=== PATIENT | female | born 1955 ===

== ENCOUNTER → 2018-02-06 14:11 | Outpatient (CLI) | payer OTHER, SELFPAY ==
--- NOTE | 2018-02-06 | DI.RAD.S_ITS ---
This blank DEXA report has been sent in error by the PACS system. The correct and complete report will be forthcoming in 1-2 days. Thank you for your patience and understanding. Dictated by: Jenna Allen MD, PhD on 02/06/2018 at 15:47 Approved by: Jenna Allen MD, PhD on 02/06/2018 at 15:47
== END ==
PROVIDERS: Family Provider Family Medicine; PCP Family Medicine; Visit Provider Family Medicine
DX: M81.0 Age-related osteoporosis without current pathological fracture (principal); Z78.0 Asymptomatic menopausal state
CPT/HCPCS: 77080

== ENCOUNTER → 2019-07-17 09:38 | Outpatient (CLI) | payer OTHER, SELFPAY ==
[2019-07-19 12:59] LABS: Ionized Calcium 5.6 mg/dL (4.8-5.6)
== END ==
PROVIDERS: Family Provider Family Medicine; PCP Family Medicine; Referring Provider Family Medicine; Visit Provider Family Medicine
DX: Z00.00 Encounter for general adult medical examination without abnormal findings (principal); M81.0 Age-related osteoporosis without current pathological fracture
CPT/HCPCS: 36415; 82330

== ENCOUNTER → 2020-02-23 08:50 | Outpatient (CLI) | payer OTHER, SELFPAY ==
[2020-02-26 06:50] LABS: COVID19 Sendout Not Detected (Not Detect)
== END ==
PROVIDERS: Family Provider Family Medicine; PCP Family Medicine; Visit Provider Nurse Practitioner
DX: Z11.59 Encounter for screening for other viral diseases (principal)
CPT/HCPCS: 87635

== ENCOUNTER 2020-02-26 07:41 | Day surgery (SDC) | payer OTHER, SELFPAY ==
[2020-02-24 11:51] VITALS: BMI 25.2
[2020-02-26] VITALS (7 sets, daily range): BP systolic 93–102; BP diastolic 53–69; PULSE 64–84; RESP 12–16; TEMP 36.2–36.3; O2SAT 93–98; BMI 25.2
--- NOTE | 2020-02-26 | PATH_ITS ---
[facility] Accession Number: [id number] . 01 Material submitted: . axilla - LEFT AXILLA FATTY MASS . 01 Clinical history: . SDC . 01 Diagnosis: Left Axilla, Excision: Mature adipose tissue, consistent with lipoma. MRV 02/28/2020 0942 Local . 01 Electronically signed: . Daniel Falk MD, Dermatopathologist NPI- [id number] . 01 Gross description: . Received in formalin, labeled left axilla fatty mass, and consists of a 2.0 x 1.6 x 1.0 cm hoang-yellow fragment of soft tissue which is inked blue and sectioned to reveal hoang-yellow lobulated cut surfaces. The specimen is serially sectioned and entirely submitted in cassettes A1-A2. ([id number]) /V 02/27/2020 1250 Local . 01 Pathologist provided ICD-10: D17.9 . 01 CPT . 933880 Performed at: [address] [facility] [address], [place], [place] [id number] MD Ladarius Beckett MD Phone: [phone]
[2020-02-26] MEDS: SCOPOLAMINE 1 PATCH TOP (08:02)
[2020-02-26] MEDS: ACETAMINOPHEN 325 MG TABLET 975 MG PO (08:02)
[2020-02-26] MEDS: LACTATED RINGERS 1,000 ML 42 ML IV (08:02)
--- NOTE | 2020-02-26 08:28 | SUR.OPER ---
Supine on padded OR bed, head on pillow, arms secured on padded arm boards at <90 degrees abduction, legs uncrossed, safety belt at thigh, tape over blanket over lower legs.
[2020-02-26] MEDS: CEFAZOLIN 2 GM/100 ML FROZ.PIGGY IV (08:40)
--- NOTE | 2020-02-26 08:44 | PM.PREOP ---
Pre-operative Note COVID-19 COVID-19 status: Negative Result date/Date tested (Pos, Neg/Pending): 02/23/20 Interval Note History & Physical reviewed/Exam performed by Physician: Yes Changes to H&P: No
[2020-02-26] MEDS: BUPIVACAINE 0.25% W/ EPI 30 ML VIAL INJ (09:13)
--- NOTE | 2020-02-26 09:19 | PM.OP.1 ---
Operative Date/Time/Diagnoses Date of procedure: 02/26/20 Time of procedure: 09:19 Pre-op diagnosis: left axillary mass Post-op diagnosis: same Procedure & Clinicians Procedure: Excision of left axillary mass 2cm x 2cm Same procedure as scheduled: Yes Indications: Left axillary mass causing pain and paresthesias with unknown malignant potential Click Yes if Unassisted: Yes Anesthesia Type: General Operative Notes Findings: 2cm fatty mass, adherent to surrounding structures Closure Type: primary Specimen(s): other (left axillary fatty mass) Estimated Blood Loss (mL): 1 Procedure in detail: 2cm vertical incision over the mass, dissected free attachments to skin and surrounding structures; closed with vicryl and monocryl and dermabond The patient was brought into the OR and placed supine on the OR table. Sequential compression devices were placed on both legs and turned on. General anesthesia was induced and the patient was intubated by the anesthesiologist. Appropriate perioperative antibiotics were given. The left axilla was prepped and draped in sterile fashion. Surgical time out was performed. Local anesthetic was infiltrated into the skin overlying the palpable mass in the left axilla. A 3 cm vertical skin incision was made in the skin overlying the mass using 15 blade. Dissection was carried down through the skin and subcutaneous tissue until the mass was identified. A 2 cm x 2 cm fatty mass was identified and dissected out from the surrounding structures. It was not encapsulated, but was adherent to the skin and surrounding structures. Once it was dissected free, it was passed off the table for pathology. It did appear like traumatized fat. Hemostasis was achieved using cautery. The skin was then closed with interrupted 3 0 Vicryl sutures, and running 4 Monocryl suture. The skin edges were then sealed with Dermabond. The patient tolerated the procedure well. The patient was then awakened from anesthesia and extubated. Needle sponge and instrument counts were correct x 2. The patient was transferred to the PACU in stable condition. Complications: none Post-operative Condition: stable Disposition: PACU
== END 2020-02-26 10:10 | disposition home or self-care (01) ==
PROVIDERS: Family Provider Family Medicine; PCP Family Medicine; Referring Provider Family Medicine; Visit Provider Surgery
PROC: (CPT 21931; principal; 2020-02-26 08:45)
DX: D17.1 Benign lipomatous neoplasm of skin and subcutaneous tissue of trunk (principal)
CPT/HCPCS: 21931; J0690; J1100; J1885; J2250; J2405; J2704

== ENCOUNTER → 2023-03-10 07:51 | Day surgery (SDC) | payer MEDICARE, OTHER, SELFPAY ==
[2023-03-10 08:11] VITALS: BMI 23.8
[2023-03-10 08:16] VITALS: BP 119/73; PULSE 77; RESP 16; TEMP 36.1; O2SAT 96
[2023-03-10] MEDS: LACTATED RINGERS 1,000 ML 150 ML IV (08:22)
--- NOTE | 2023-03-10 08:48 | PM.HP.1 ---
History of Present Illness History of Present Illness Date Patient Seen: 03/10/23 Time Patient Seen: 08:48 Chief complaint: Colonoscopy Narrative: Colon cancer screening, this is her 2nd colonoscopy. No family history and no symptoms at this time [facility] Medical History Arm paresthesia, left Neoplasm of uncertain behavior Osteoporosis Surgical History History of partial hysterectomy Hx of cholecystectomy Social History marital status: household members: spouse and children occupational status: employed Smoking Status: Never smoker alcohol intake: never substance use type: does not use Meds Home Medications and Allergies Home Medications Medication Instructions Recorded Confirmed Type alendronate 70 mg tablet 70 mg PO QWEEK 02/04/20 03/10/23 History calcium carbonate 500 mg calcium 500 mg PO DAILY 02/04/20 03/10/23 History (1,250 mg) tablet (Calcium 500) cholecalciferol (vitamin D3) 10 10 mcg PO DAILY 02/04/20 03/10/23 History mcg (400 unit) capsule Allergies Allergy/AdvReac Type Severity Reaction Status Date / Time latex Allergy Mild Rash Verified 03/10/23 08:04 Exam Vital Signs (past 8 hours): - 03/10/23 08:16 Temperature 97.0 F L Pulse Rate 77 Respiratory Rate 16 Blood Pressure 119/73 Pulse Oximetry 96 Oxygen Delivery Method Room Air Oxygen Delivery Method Room Air Const General: cooperative and healthy appearing [facility] Head: normal to inspection, normocephalic and atraumatic Face and sinus: normal facial exam Eyes General: appearance normal, both eyes and all related structures Neck Neck: trachea midline Resp Effort & Inspection: normal respiratory effort and able to speak in complete sentences Cardio Rate: regular rate Rhythm: regular rhythm GI Inspection: normal to inspection Palpation: soft Skin General: turgor normal Neuro General: patient alert, patient awake and patient oriented x3 Psych Appearance: grossly normal Affect: normal affect Judgment: judgment good Assessment & Plan Assessment & Plan narrative: Colon cancer screening Colonoscopy with anesthesia Time Spent With Patient Time with patient: less than 30 minutes
--- NOTE | 2023-03-10 09:19 | PM.OP.COLON ---
Operative Date/Time/Diagnoses Date of procedure: 03/10/23 Time of procedure: 09:20 Pre-op diagnosis: Colon cancer screening Post-op diagnosis: same Procedure & Clinicians Study performed: Colonoscopy with anesthesia Indications: Colon cancer screening Surgeon: Anita Gonzalez Procedure Notes Procedure in detail: Preop diagnosis: Colon cancer screening Postop diagnosis: Same Operative procedure: Colonoscopy with anesthesia Findings: Diverticulosis of the sigmoid colon with numerous large and moderate size diverticuli. No polyps Procedure: Patient placed in a lateral position. Rectal exam performed showing normal tone no masses. Colonoscope inserted into the rectum and advanced to ileocecal valve with minimal difficulty. Insufflation extraction of the scope including retroflex in the rectum had the above findings. Impression: Diverticulosis of the sigmoid colon moderate to severe, no polyps identified. Plan: Repeat colonoscopy in 10 years unless otherwise indicated by change in clinical condition Findings: divertiulosis Specimen(s): none sent Complications: none Post-procedure Recommendations: Colonoscopy in 10 years Follow up: as needed Disposition: PACU
[2023-03-10 09:24] VITALS: BP 89/73; PULSE 71; RESP 13; TEMP 36.2; O2SAT 94
[2023-03-10 09:26] VITALS: BP 107/65; PULSE 70; RESP 13; O2SAT 94
[2023-03-10 09:28] VITALS: BP 114/68; PULSE 69; RESP 12; O2SAT 95
[2023-03-10 09:33] VITALS: BP 127/75; PULSE 67; RESP 19; O2SAT 94
[2023-03-10 10:09] VITALS: BP 102/63; PULSE 66; RESP 21; TEMP 36.9; O2SAT 100
--- NOTE | 2023-03-10 10:34 | SUR.PHASEII ---
Pt complained of left eye itching. Dr Lr saw patient and evaluated eye. Artificial tears ordered and pt stated eye felt better after administration. Will call PCP for continued pain and problems.
== END | disposition home or self-care (01) ==
PROVIDERS: Family Provider Family Medicine; PCP Physician Assistant Medical; Referring Provider Surgery; Visit Provider Anesthesiology
PROC: 0DJD8ZZ Inspection of Lower Intestinal Tract, Via Natural or Artificial Opening Endoscopic (ICD-10-PCS; CPT 45378; principal; 2023-03-10 08:45)
DX: Z12.11 Encounter for screening for malignant neoplasm of colon (principal); K57.30 Diverticulosis of large intestine without perforation or abscess without bleeding
CPT/HCPCS: G0121; J2250; J3010